=== PATIENT | female | born 1950 | race Caucasian/White ===

== ENCOUNTER 2017-05-25 11:09 | Observation (INO) | payer MEDICARE, BC, OTHER ==
[2017-05-25] MEDS ORDERED: Sodium Chloride 0.9% 5 ML Syringe FLUSH PRN (11:17)
[2017-05-25 12:26] LABS: CHLORIDE,CL 104 mmol/L (98-115); SODIUM,NA 142 mmol/L (136-145)
[2017-05-25] MEDS ORDERED: Albuterol HFA 18 Gm Inhaler INH PRN (17:29)
[2017-05-25] MEDS ORDERED: Albuterol/Ipratropium 3.0-0.5 MG/3 ML Neb Soln INH PRN (17:29)
[2017-05-25] MEDS ORDERED: metFORMIN 500 MG Tab PO SCH (18:00)
[2017-05-25] MEDS: Pantoprazole 40 MG Vial IVPUSH SCH (21:01)
[2017-05-25] MEDS: Pramipexole 0.5 MG Tab PO SCH (21:02)
[2017-05-25] MEDS: Sertraline 50 MG Tab PO SCH (21:02)
[2017-05-25] MEDS: MDI INH SCH (21:02)
[2017-05-25] MEDS: Donepezil 10 MG Tab PO SCH (21:02)
[2017-05-25] MEDS: Memantine 10 MG Tab PO SCH (21:02)
[2017-05-25] MEDS: SYMBICORT INH SCH (21:02)
[2017-05-25] MEDS: Pregabalin 100 MG Cap PO SCH (21:04)
[2017-05-25] MEDS: Pregabalin 25 MG Cap PO SCH (21:04)
[2017-05-26] MEDS ORDERED: Omeprazole 20 MG Cap.CR PO SCH (07:30)
[2017-05-26] MEDS: Pantoprazole 40 MG Vial IVPUSH SCH (08:10)
[2017-05-26] MEDS: SYMBICORT INH SCH ×2 (08:11→20:48)
[2017-05-26] MEDS: MDI INH SCH ×2 (08:11→20:48)
[2017-05-26] MEDS: Memantine 10 MG Tab PO SCH ×2 (08:13→20:49)
[2017-05-26] MEDS: Pregabalin 100 MG Cap PO SCH ×2 (08:14→20:49)
[2017-05-26] MEDS: Pregabalin 25 MG Cap PO SCH ×2 (08:14→20:49)
[2017-05-26] MEDS: atorvaSTATin 40 MG Tab PO SCH (08:14)
[2017-05-26] MEDS: Ferrous Sulfate 325 MG Tab PO SCH (08:14)
[2017-05-26] MEDS ORDERED: Aspirin 81 MG Tab.EC PO SCH (09:00)
--- NOTE | 2017-05-26 10:35 | PCM.PN ---
- General Info Date of Service: 05/26/17 Subjective Update: Patient reports she continues to be cold and tired. No change from yesterday. Functional Status: Reports: Pain Controlled, Tolerating Diet, Ambulating, Urinating - Review of Systems General: Reports: Fatigue, Other (Always cold). Denies: Fever, Chills HEENT: Denies: Headaches Pulmonary: Denies: Shortness of Breath Cardiovascular: Denies: Chest Pain, Edema Gastrointestinal: Denies: Abdominal Pain, Constipation, Diarrhea, Melena, Nausea , Vomiting Neurological: Denies: Dizziness, Headache Psychiatric: Reports: Confusion, Other (Dementia) - Patient Data Vitals - Most Recent: Last Vital Signs Temp 99.0 F 05/26/17 06:13 Pulse 61 05/26/17 06:13 Resp 18 05/26/17 06:13 BP 103/52 L 05/26/17 06:13 Pulse Ox 92 L 05/26/17 06:13 Weight - Most Recent: 140 lb 8 oz I&O - Last 24 Hours: Intake & Output 05/25/17 05/26/17 05/26/17 22:59 06:59 14:59 Intake Total 1249 50 Output Total 300 300 Balance 949 -250 Lab Results Last 24 Hours: Laboratory Results - last 24 hr 05/25/17 05/25/17 05/25/17 Range/Units 11:45 11:45 11:45 WBC 6.9 (5.0-10.0) 10^3/uL RBC 1.85 L (3.80-5.50) 10^6/uL Hgb 4.2 L* (12.0-16.0) g/dL Hct 13.8 L* (37.0-47.0) % MCV 74.3 L (82.0-92.0) fL MCH 22.9 L (27.0-31.0) pg MCHC 30.9 L (32.0-36.0) g/dL RDW 17.4 H (11.5-14.5) % RDW Coeff of Bala Plt Count 177 (150-300) 10^3/uL MPV 9.4 (7.4-10.4) fL Add Manual Diff Yes Neutrophils % (Manual) 86 H (50-70) % Band Neutrophils % 2 L (4-12) % Lymphocytes % (Manual) 7 L (20-40) % Monocytes % (Manual) 5 (2-8) % Eosinophils % (Manual) 0 L (1-3) % Basophils % (Manual) 0 (0-1) % Hypochromasia 2+ moderate Poikilocytosis 1+ slight Anisocytosis 1+ slight Microcytosis 1+ slight Schistocytes 1+ slight ESR (0-20) mm/hr Sodium 142 (136-145) mmol/L Potassium 4.1 (3.3-5.3) mmol/L Chloride 104 (98-115) mmol/L Carbon Dioxide 28.3 (21.0-32.0) mmol/L BUN 20 (6-25) mg/dL Creatinine 0.61 (0.51-1.17) mg/dL Est Cr Clr Drug Dosing TNP Estimated GFR (MDRD) > 60 mL/min Glucose 238 H (70-110) mg/dL POC Glucose (74-106) mg/dl Calcium 8.6 L (8.7-10.3) mg/dL Iron <10 L (35-145) ug/dL TIBC N/a H (261-478) ug/dL Unsaturated IBC 477 H (155-355) ug/dL Transferrin % Sat N/a H (20.0-50.0) % Ferritin (11-307) ng/mL Total Bilirubin 0.3 (0.2-1.0) mg/dL AST 23 (15-37) U/L ALT 21 (12-78) U/L Alkaline Phosphatase 109 (46-116) IU/L Creatine Kinase (26-276) U/L Total Protein 6.2 L (6.4-8.2) g/dL Albumin 3.07 (3.00-4.80) g/dL Vitamin B12 (180-914) pg/mL Folate ng/mL TSH, Ultra Sensitive (0.340-4.820) uIU/mL Blood Type Gel Antibody Screen Crossmatch 05/25/17 05/25/17 05/25/17 Range/Units 11:45 11:45 11:45 WBC (5.0-10.0) 10^3/uL RBC (3.80-5.50) 10^6/uL Hgb (12.0-16.0) g/dL Hct (37.0-47.0) % MCV (82.0-92.0) fL MCH (27.0-31.0) pg MCHC (32.0-36.0) g/dL RDW (11.5-14.5) % RDW Coeff of Bala Plt Count (150-300) 10^3/uL MPV (7.4-10.4) fL Add Manual Diff Neutrophils % (Manual) (50-70) % Band Neutrophils % (4-12) % Lymphocytes % (Manual) (20-40) % Monocytes % (Manual) (2-8) % Eosinophils % (Manual) (1-3) % Basophils % (Manual) (0-1) % Hypochromasia Poikilocytosis Anisocytosis Microcytosis Schistocytes ESR (0-20) mm/hr Sodium (136-145) mmol/L Potassium (3.3-5.3) mmol/L Chloride (98-115) mmol/L Carbon Dioxide (21.0-32.0) mmol/L BUN (6-25) mg/dL Creatinine (0.51-1.17) mg/dL Est Cr Clr Drug Dosing Estimated GFR (MDRD) mL/min Glucose (70-110) mg/dL POC Glucose (74-106) mg/dl Calcium (8.7-10.3) mg/dL Iron (35-145) ug/dL TIBC (261-478) ug/dL Unsaturated IBC (155-355) ug/dL Transferrin % Sat (20.0-50.0) % Ferritin 3 L (11-307) ng/mL Total Bilirubin (0.2-1.0) mg/dL AST (15-37) U/L ALT (12-78) U/L Alkaline Phosphatase (46-116) IU/L Creatine Kinase (26-276) U/L Total Protein (6.4-8.2) g/dL Albumin (3.00-4.80) g/dL Vitamin B12 512 (180-914) pg/mL Folate >22.0 ng/mL TSH, Ultra Sensitive (0.340-4.820) uIU/mL Blood Type Gel Antibody Screen Crossmatch 05/25/17 05/25/17 05/25/17 Range/Units 11:45 11:45 11:45 WBC (5.0-10.0) 10^3/uL RBC (3.80-5.50) 10^6/uL Hgb (12.0-16.0) g/dL Hct (37.0-47.0) % MCV (82.0-92.0) fL MCH (27.0-31.0) pg MCHC (32.0-36.0) g/dL RDW (11.5-14.5) % RDW Coeff of Bala Plt Count (150-300) 10^3/uL MPV (7.4-10.4) fL Add Manual Diff Neutrophils % (Manual) (50-70) % Band Neutrophils % (4-12) % Lymphocytes % (Manual) (20-40) % Monocytes % (Manual) (2-8) % Eosinophils % (Manual) (1-3) % Basophils % (Manual) (0-1) % Hypochromasia Poikilocytosis Anisocytosis Microcytosis Schistocytes ESR 10 (0-20) mm/hr Sodium (136-145) mmol/L Potassium (3.3-5.3) mmol/L Chloride (98-115) mmol/L Carbon Dioxide (21.0-32.0) mmol/L BUN (6-25) mg/dL Creatinine (0.51-1.17) mg/dL Est Cr Clr Drug Dosing Estimated GFR (MDRD) mL/min Glucose (70-110) mg/dL POC Glucose (74-106) mg/dl Calcium (8.7-10.3) mg/dL Iron (35-145) ug/dL TIBC (261-478) ug/dL Unsaturated IBC (155-355) ug/dL Transferrin % Sat (20.0-50.0) % Ferritin (11-307) ng/mL Total Bilirubin (0.2-1.0) mg/dL AST (15-37) U/L ALT (12-78) U/L Alkaline Phosphatase (46-116) IU/L Creatine Kinase 59 (26-276) U/L Total Protein (6.4-8.2) g/dL Albumin (3.00-4.80) g/dL Vitamin B12 (180-914) pg/mL Folate ng/mL TSH, Ultra Sensitive (0.340-4.820) uIU/mL Blood Type O POSITIVE Gel Antibody Screen Negative Crossmatch See Detail 05/25/17 05/26/17 05/26/17 Range/Units 17:45 06:12 07:20 WBC 5.3 (5.0-10.0) 10^3/uL RBC 2.59 L (3.80-5.50) 10^6/uL Hgb 6.2 L* (12.0-16.0) g/dL Hct 20.6 L (37.0-47.0) % MCV 79.8 L (82.0-92.0) fL MCH 23.9 L (27.0-31.0) pg MCHC 30.0 L (32.0-36.0) g/dL RDW 17.0 H (11.5-14.5) % RDW Coeff of Bala 16.8 Plt Count 161 (150-300) 10^3/uL MPV 9.0 (7.4-10.4) fL Add Manual Diff Neutrophils % (Manual) 63 (50-70) % Band Neutrophils % (4-12) % Lymphocytes % (Manual) 25 (20-40) % Monocytes % (Manual) 10 H (2-8) % Eosinophils % (Manual) 1 (1-3) % Basophils % (Manual) 1 (0-1) % Hypochromasia Poikilocytosis Anisocytosis Microcytosis Schistocytes ESR (0-20) mm/hr Sodium (136-145) mmol/L Potassium (3.3-5.3) mmol/L Chloride (98-115) mmol/L Carbon Dioxide (21.0-32.0) mmol/L BUN (6-25) mg/dL Creatinine (0.51-1.17) mg/dL Est Cr Clr Drug Dosing Estimated GFR (MDRD) mL/min Glucose (70-110) mg/dL POC Glucose 158 H 157 H (74-106) mg/dl Calcium (8.7-10.3) mg/dL Iron (35-145) ug/dL TIBC (261-478) ug/dL Unsaturated IBC (155-355) ug/dL Transferrin % Sat (20.0-50.0) % Ferritin (11-307) ng/mL Total Bilirubin (0.2-1.0) mg/dL AST (15-37) U/L ALT (12-78) U/L Alkaline Phosphatase (46-116) IU/L Creatine Kinase (26-276) U/L Total Protein (6.4-8.2) g/dL Albumin (3.00-4.80) g/dL Vitamin B12 (180-914) pg/mL Folate ng/mL TSH, Ultra Sensitive (0.340-4.820) uIU/mL Blood Type Gel Antibody Screen Crossmatch 05/26/17 Range/Units 07:20 WBC (5.0-10.0) 10^3/uL RBC (3.80-5.50) 10^6/uL Hgb (12.0-16.0) g/dL Hct (37.0-47.0) % MCV (82.0-92.0) fL MCH (27.0-31.0) pg MCHC (32.0-36.0) g/dL RDW (11.5-14.5) % RDW Coeff of Bala Plt Count (150-300) 10^3/uL MPV (7.4-10.4) fL Add Manual Diff Neutrophils % (Manual) (50-70) % Band Neutrophils % (4-12) % Lymphocytes % (Manual) (20-40) % Monocytes % (Manual) (2-8) % Eosinophils % (Manual) (1-3) % Basophils % (Manual) (0-1) % Hypochromasia Poikilocytosis Anisocytosis Microcytosis Schistocytes ESR (0-20) mm/hr Sodium (136-145) mmol/L Potassium (3.3-5.3) mmol/L Chloride (98-115) mmol/L Carbon Dioxide (21.0-32.0) mmol/L BUN (6-25) mg/dL Creatinine (0.51-1.17) mg/dL Est Cr Clr Drug Dosing Estimated GFR (MDRD) mL/min Glucose (70-110) mg/dL POC Glucose (74-106) mg/dl Calcium (8.7-10.3) mg/dL Iron (35-145) ug/dL TIBC (261-478) ug/dL Unsaturated IBC (155-355) ug/dL Transferrin % Sat (20.0-50.0) % Ferritin (11-307) ng/mL Total Bilirubin (0.2-1.0) mg/dL AST (15-37) U/L ALT (12-78) U/L Alkaline Phosphatase (46-116) IU/L Creatine Kinase (26-276) U/L Total Protein (6.4-8.2) g/dL Albumin (3.00-4.80) g/dL Vitamin B12 (180-914) pg/mL Folate ng/mL TSH, Ultra Sensitive 0.790 (0.340-4.820) uIU/mL Blood Type Gel Antibody Screen Crossmatch [facility] Results Last 24 Hours: Microbiology 05/26/17 09:00 Occult Blood - Final Stool / Feces - Stool, Formed Med Orders - Current: Current Medications Albuterol (Ventolin Hfa) 1 - 2 gm INH Q4H PRN PRN Reason: Dyspnea Albuterol/Ipratropium (Duoneb 3.0-0.5 Mg/3 Ml) 3 ml INH QID PRN PRN Reason: Dyspnea Atorvastatin Calcium (Lipitor) 40 mg PO DAILY [facility] Last Admin: 05/26/17 08:14 Dose: 40 mg Donepezil HCl (Aricept) 20 mg PO BEDTIME [facility] Last Admin: 05/25/17 21:02 Dose: 20 mg Ferrous Sulfate (Ferrous Sulfate) 325 mg PO DAILY [facility] Last Admin: 05/26/17 08:14 Dose: 325 mg Memantine (Namenda) 10 mg PO BID [facility] Last Admin: 05/26/17 08:13 Dose: 10 mg Pantoprazole Sodium (Protonix Iv) 40 mg IVPUSH DAILY [facility] Last Admin: 05/26/17 08:10 Dose: 40 mg PtomSymbicort (160/4.5 Mdi) 2 each INH BID [facility] Last Admin: 05/26/17 08:11 Dose: 2 each Pramipexole Dihydrochloride (Mirapex) 0.25 mg PO BEDTIME [facility] Last Admin: 05/25/17 21:02 Dose: 0.25 mg Pregabalin (Lyrica) 100 mg PO BID [facility] Last Admin: 05/26/17 08:14 Dose: 100 mg Pregabalin (Lyrica) 50 mg PO BID [facility] Last Admin: 05/26/17 08:14 Dose: 50 mg Sertraline HCl (Zoloft) 150 mg PO BEDTIME [facility] Last Admin: 05/25/17 21:02 Dose: 150 mg Sodium Chloride (Syrex Flush) 5 ml FLUSH Q8HR PRN PRN Reason: Keep Vein Open Discontinued Medications Aspirin (Halfprin) 81 mg PO DAILY [facility] Metformin HCl (Glucophage) 500 mg PO BIDMEALS [facility] Last Admin: 05/25/17 19:09 Dose: Not Given Omeprazole (Omeprazole) 20 mg PO ACBREAKFAST [place] - Exam Quality Assessment: No: Supplemental Oxygen, Urine Catheter, DVT Prophylaxis ( rule out GI bleed) General: Alert, Oriented (x3), Cooperative, No Acute Distress Lungs: Clear to Auscultation, Normal Respiratory Effort Cardiovascular: Regular Rate, Regular Rhythm GI/Abdominal Exam: Normal Bowel Sounds, Soft, Non-Tender, No Distention, No Mass Extremities: No Pedal Edema Skin: Warm, Dry, Other (pale) Neurological: Normal Speech Psy/Mental Status: Alert, Normal Affect, Normal Mood - Problem List Review Problem List Initiated/Reviewed/Updated: Yes - My Orders Last 24 Hours: My Active Orders 05/25/17 18:15 Pantoprazole [ProTONIX IV] 40 mg IVPUSH DAILY 05/26/17 07:20 FREE T4 [REF] Routine 05/26/17 09:44 Transfuse RBC [Transfuse Red Blood Cells] [COMM] Routine 05/26/17 09:57 UA W/MICROSCOPIC [URIN] Routine 05/27/17 05:11 BMP [BASIC METABOLIC PANEL,BMP] [CHEM] AM CBC WITH AUTO DIFF [HEME] AM - Assessment Assessment:: PRIMARY ASSESSMENT/PLAN: Severe iron deficiency anemia d/t GI bleed. Hgb improved to 6.2 after 2 units of PRBCs were given yesterday. MCV 79.8, Iron <10, ferritin 3, Unsaturated IBC 477. TSH 0.79, B12 512, folate >22.0. Stool for occult x 1 is positive. UA with micro pending. Will transfuse 1 units of PRBCs now, then repeat Hgb 4 hours after the tranfusion is complete. Continue oral iron and IV protonix. Continue holding aspirin. Patient will need upper endoscopy and possible colonoscopy for further evaluation. She would prefer to have this performed in [place]. Referral had been placed to hematology yesterday per PCP. SECONDARY ASSESSMENT/PLAN: Type 2 diabetes mellitus. Accuchecks BID. Glucose 157. Recent A1C 8.2. Resume metformin. Hyperlipidemia. Recent LDL 49. Continue lipitor. Asthma with COPD. Continue symbicort BID and duonebs PRN. Diabetic neuropathy. Continue lyrica. Dementia. Continue aricept and namenda. Anxiety. Continue zoloft. Depression. Continue zoloft. Restless leg syndrome. Continue mirapex. Psoriasis. DVT prophylaxis. None-GI bleed. Overall treatment plan: Patient will receive 1 unit of PRBCs today with a recheck of her hemoglobin. Goal will be to stabilize hemoglobin around 7. Will consult GI in [place] to determine when scoping should be performed.
--- NOTE | 2017-05-26 11:32 | PCM.SN ---
- Free Text/Narrative Note: Call placed to [facility] and spoke with Dr. Meneses about patient. He agrees with transfusing until achieving a hemoglobin of 7 and stabilizing there. She can stay on a baby aspirin. Check orthostatic blood pressures. She can be set up for EGD and colonoscopy within the next month in [place]. Recheck hgb 1 week after discharge.
[2017-05-26] MEDS: metFORMIN 500 MG Tab PO SCH (17:47)
[2017-05-26] MEDS: Sertraline 50 MG Tab PO SCH (20:49)
[2017-05-26] MEDS: Pramipexole 0.5 MG Tab PO SCH (20:49)
[2017-05-26] MEDS: Donepezil 10 MG Tab PO SCH (20:49)
[2017-05-27 06:23] VITALS: BP 124/54
[2017-05-27 07:55] LABS: CHLORIDE,CL 105 mmol/L (98-115); SODIUM,NA 141 mmol/L (136-145)
[2017-05-27] MEDS: Ferrous Sulfate 325 MG Tab PO SCH (08:24)
[2017-05-27] MEDS: Pantoprazole 40 MG Vial IVPUSH SCH (08:24)
[2017-05-27] MEDS: atorvaSTATin 40 MG Tab PO SCH (08:24)
[2017-05-27] MEDS: MDI INH SCH (08:25)
[2017-05-27] MEDS: SYMBICORT INH SCH (08:25)
[2017-05-27] MEDS: Memantine 10 MG Tab PO SCH (08:25)
[2017-05-27] MEDS: Pregabalin 25 MG Cap PO SCH (08:28)
[2017-05-27] MEDS: Pregabalin 100 MG Cap PO SCH (08:28)
[2017-05-27] MEDS: metFORMIN 500 MG Tab PO SCH (08:28)
--- NOTE | 2017-05-27 10:23 | PCM.DCSUM1 ---
Discharge Summary - Hospital Course Brief History: This is a 67 year old female who was admitted from the [facility] due to a hemoglobin of 4.2. Patient was asymptomatic other than fatigue and being cold. Patient has a history of iron deficiency anemia, but had stopped her iron pill a couple months ago. She had an EGD and colonoscopy performed in 2016 which were negative except a tubular adenoma had been removed. She had a recent CT of the abdomen and pelvis in November 2016 and this was negative. The patient lives at home with her . The patient has dementia and follows with neurology for this. She was admitted for blood transfusions and further workup of her severe anemia. - Discharge Data Discharge Date: 05/27/17 Discharge Disposition: Home, Self-Care 01 Condition: Good - Patient Summary/Data Complications: None Consults: Dr. Meneses, GI specialist, [facility]. Labs Pending at D/C: Urine culture Recommended Follow-up Testing/Procedures: Follow-up on urine culture to determine if treatment is warranted. Recheck hemoglobin and trend until scopes can be performed. Planned Operative Procedure(s) after DC: Patient will be set up for EGD and colonoscopy in [place] after discharge. The referral has been placed. - Patient Instructions Diet: Diabetic Diet Activity: As Tolerated Driving: Do Not Drive Showering/Bathing: May Shower Notify Provider of: Fever, Increased Pain, Nausea and/or Vomiting (dizziness, lightheadedness, shortness of breath, or chest pain) Other/Special Instructions: A referral has been made to have the colonoscopy and upper GI scope done in [place]. Their office will contact you to determine a date and time. Leila MOURA had placed a referral to hematology (blood specialist) when she saw you in the clinic, so expect a call from them as well to make an appointment. You will have your hemoglobin drawn at your appointment with Leila to ensure it is staying stable. - Discharge Plan Prescriptions/Med Rec: Ferrous Sulfate [Feosol] 325 mg PO DAILY #90 tablet Home Medications: Home Meds Donepezil [Aricept] 20 mg PO BEDTIME 10/29/15 [History] Memantine [Namenda] 10 mg PO BID 10/29/15 [History] Omeprazole 20 mg PO ACBREAKFAST 10/29/15 [History] Pramipexole [Mirapex] 0.25 mg PO BEDTIME 10/29/15 [History] metFORMIN [Glucophage] 500 mg PO BIDMEALS 10/29/15 [History] Albuterol/Ipratropium [DuoNeb 3.0-0.5 MG/3 ML] 1 ampule INH QID PRN 11/02/15 [ History] Calcium Carbonate/Vitamin D3 [Caltrate 600 Plus D3 Tablet] 1 tab PO BID [History] Pregabalin [Lyrica] 150 mg PO BID 11/02/15 [History] atorvaSTATin [Lipitor] 40 mg PO DAILY 11/02/15 [History] Albuterol [Ventolin HFA] 1 - 2 puff INH Q4H PRN 05/25/17 [History] Budesonide/Formoterol Fumarate [Symbicort 160-4.5 Mcg Inhaler] 2 puff INH BID [History] Ipratropium [place] 2 spray NASBOTH BID PRN 05/25/17 [History] Sertraline [Zoloft] 150 mg PO BEDTIME 05/25/17 [History] Ferrous Sulfate [Feosol] 325 mg PO DAILY #90 tablet 05/27/17 [Rx] Referrals: Leila Moy PA-C [Primary Care Provider] - 05/30/17 (See Leila MOURA at the [facility] on Sunday morning. You will have to call and make the appointment. ) - Discharge Summary/Plan Comment DC Time >30 min.: No Discharge Summary/Plan Comment: Date of admission: 05/25/17 Date of discharge: 05/27/17 Admitting diagnosis: Primary: Severe anemia, rule out GI bleed Secondary: Type 2 diabetes mellitus, hyperlipidemia, asthma with COPD, diabetic neuropathy, dementia, anxiety, depression, restless leg syndrome, psoriasis Final diagnosis: Primary: Severe iron deficiency anemia d/t GI bleed, Asymptomatic bacterial vaginosis, Asymptomatic bacteriuria Secondary: Type 2 diabetes mellitus, hyperlipidemia, asthma with COPD, diabetic neuropathy, dementia, anxiety, depression, restless leg syndrome, psoriasis Procedures performed: None Hospital Course: The patient's hospital course went as expected. She remained hemodynamically stable throughout her stay. She did run low grade temperatures during her blood transfusions, but not above 100.1 F. The patient received a total of 3 units of PRBCs. Her discharge hemoglobin was 7.8. She was found to have a positive stool for occult blood. Her anemia workup was as follows suggesting an iron deficiency anemia due to blood loss: MCV 74.3 (L), iron <10 (L), TIBC n/a, unsaturated IBC 477 (H), ferritin 3 (L), vitamin b12 512, folate >22.0, TSH 0.79 with free T4 0.80, ESR 10. Orthostatic blood pressures were unremarkable. The patient was started on oral iron 325 mg daily and PPI therapy. Her aspirin has been on hold. The patient had a UA performed which noted trace of blood and moderate bacteria with clue cells present. Urine culture is pending on discharge. She was not treated for either condition as she was asymptomatic. Her creatinine was 0.61 with a BUN of 12 on discharge. Consult was placed the day prior to discharge to GI in [place]. Spoke with Dr. Meneses who advised an EGD and colonoscopy within the next month. Referral placed for this as well as hematology referral by her PCP prior to admission. New medications on discharge: -Ferrous sulfate 325 mg po daily New changes to home medications on discharge: -Hold aspirin Regular home medications on discharge: -Lipitor 40 mg po daily -Mirapex 0.25 mg po at bedtime -Namenda 10 mg po BID -Calcium Carbonate/Vitamin D3 1 tablet po BID -DuoNeb 1 unit inhaled QID PRN -Lyrica 150 mg po BID -Albuterol HFA 1-2 puffs inh every 4 hours PRN -Aricept 20 mg po at HS -Omeprazole 20 mg po daily -Zoloft 150 mg po at HS -Metformin 500 mg po BID -Symbicort 160-4.5 mcg 2 puffs BID -Ipratropium [place] 2 sprays to each nostril BID PRN Condition, Treatment, and Final Disposition: The patient is in stable condition at the time of discharge. She will be discharged home today with her on oral iron with PPI therapy. She will follow-up in the [place] on 05/30/16 with Leila MOURA. She will have a hemoglobin repeated at that visit along with trending of the hemoglobins until she is able to have her scopes performed. The urine culture results will be addressed at the follow-up appointment. - General Info Date of Service: 05/27/17 Subjective Update: Patient reports she is still tired, but isn't as cold. Functional Status: Reports: Pain Controlled, Tolerating Diet, Ambulating, Urinating. Denies: New Symptoms - Review of Systems General: Reports: Weakness, Fatigue. Denies: Fever, Chills HEENT: Denies: Headaches Pulmonary: Denies: Shortness of Breath Cardiovascular: Denies: Chest Pain, Edema Gastrointestinal: Denies: Abdominal Pain, Diarrhea, Nausea, Vomiting Genitourinary: Denies: Dysuria, Other (No vaginal symptoms) Neurological: Denies: Confusion, Headache Psychiatric: Denies: Anxiety - Patient Data Vitals - Most Recent: Last Vital Signs Temp 99.5 F 05/27/17 06:22 Pulse 68 05/27/17 06:22 Resp 16 05/27/17 06:22 BP 124/54 L 05/27/17 06:22 Pulse Ox 94 L 05/27/17 06:22 Orthostatic Blood Pressure [ 117/59 Standing] Orthostatic Blood Pressure [ 107/60 Sitting] Orthostatic Blood Pressure [ 118/60 Supine] Weight - Most Recent: 140 lb 8 oz I&O - Last 24 hours: Intake & Output 05/26/17 05/27/17 05/27/17 22:59 06:59 14:59 Intake Total 780 200 Output Total 1550 700 Balance -770 -500 Lab Results - Last 24 hrs: Laboratory Results - last 24 hr 05/25/17 05/26/17 05/26/17 Range/Units 11:45 07:20 12:45 WBC (5.0-10.0) 10^3/uL RBC (3.80-5.50) 10^6/uL Hgb (12.0-16.0) g/dL Hct (37.0-47.0) % MCV (82.0-92.0) fL MCH (27.0-31.0) pg MCHC (32.0-36.0) g/dL RDW (11.5-14.5) % Plt Count (150-300) 10^3/uL MPV (7.4-10.4) fL Neut % (Auto) (50.0-70.0) % Lymph % (Auto) (20.0-40.0) % [place] % (Auto) (2.0-8.0) % Eos % (Auto) (1.0-3.0) % Baso % (Auto) (0.0-1.0) % Neut # (Auto) (2.5-7.0) 10^3/uL Lymph # (Auto) (1.0-4.0) 10^3/uL [place] # (Auto) (0.1-0.8) 10^3/uL Eos # (Auto) (0.1-0.3) 10^3/uL Baso # (Auto) (0.0-0.1) 10^3/uL Sodium (136-145) mmol/L Potassium (3.3-5.3) mmol/L Chloride (98-115) mmol/L Carbon Dioxide (21.0-32.0) mmol/L BUN (6-25) mg/dL Creatinine (0.51-1.17) mg/dL Est Cr Clr Drug Dosing mL/min Estimated GFR (MDRD) mL/min Glucose (70-110) mg/dL POC Glucose (74-106) mg/dl Calcium (8.7-10.3) mg/dL Free T4 0.80 (0.59-1.17) ng/dL Specimen Type Urinblad Urine Color Yellow (YELLOW) Urine Appearance Slightly cloudy H (CLEAR) Urine pH 7.0 (5.0-9.0) Ur Specific [place] 1.010 (1.005-1.030) Urine Protein Negative (NEGATIVE) mg/dL Urine Glucose (UA) 500 H (NEGATIVE) mg/dL Urine Ketones Negative (NEGATIVE) mg/dL Urine Occult Blood Trace-intact H (NEGATIVE) Urine Nitrite Negative (NEGATIVE) Urine Bilirubin Negative (NEGATIVE) Urine Urobilinogen 0.2 (0.2-1.0) E.U./dL Ur Leukocyte Esterase Small H (NEGATIVE) Urine RBC 0-5 /HPF Urine WBC 5-10 H /HPF Ur Epithelial Cells Few /LPF Urine Bacteria Moderate H (NONE TO FEW) /HPF Urinalysis Comment Blood Type O POSITIVE Gel Antibody Screen Negative Crossmatch See Detail 05/26/17 05/26/17 05/27/17 Range/Units 17:44 17:45 05:14 WBC (5.0-10.0) 10^3/uL RBC (3.80-5.50) 10^6/uL Hgb 8.1 L (12.0-16.0) g/dL Hct (37.0-47.0) % MCV (82.0-92.0) fL MCH (27.0-31.0) pg MCHC (32.0-36.0) g/dL RDW (11.5-14.5) % Plt Count (150-300) 10^3/uL MPV (7.4-10.4) fL Neut % (Auto) (50.0-70.0) % Lymph % (Auto) (20.0-40.0) % [place] % (Auto) (2.0-8.0) % Eos % (Auto) (1.0-3.0) % Baso % (Auto) (0.0-1.0) % Neut # (Auto) (2.5-7.0) 10^3/uL Lymph # (Auto) (1.0-4.0) 10^3/uL [place] # (Auto) (0.1-0.8) 10^3/uL Eos # (Auto) (0.1-0.3) 10^3/uL Baso # (Auto) (0.0-0.1) 10^3/uL Sodium (136-145) mmol/L Potassium (3.3-5.3) mmol/L Chloride (98-115) mmol/L Carbon Dioxide (21.0-32.0) mmol/L BUN (6-25) mg/dL Creatinine (0.51-1.17) mg/dL Est Cr Clr Drug Dosing mL/min Estimated GFR (MDRD) mL/min Glucose (70-110) mg/dL POC Glucose 151 H 173 H (74-106) mg/dl Calcium (8.7-10.3) mg/dL Free T4 (0.59-1.17) ng/dL Specimen Type Urine Color (YELLOW) Urine Appearance (CLEAR) Urine pH (5.0-9.0) Ur Specific [place] (1.005-1.030) Urine Protein (NEGATIVE) mg/dL Urine Glucose (UA) (NEGATIVE) mg/dL Urine Ketones (NEGATIVE) mg/dL Urine Occult Blood (NEGATIVE) Urine Nitrite (NEGATIVE) Urine Bilirubin (NEGATIVE) Urine Urobilinogen (0.2-1.0) E.U./dL Ur Leukocyte Esterase (NEGATIVE) Urine RBC /HPF Urine WBC /HPF Ur Epithelial Cells /LPF Urine Bacteria (NONE TO FEW) /HPF Urinalysis Comment Blood Type Gel Antibody Screen Crossmatch 05/27/17 05/27/17 Range/Units 07:15 07:15 WBC 6.3 (5.0-10.0) 10^3/uL RBC 3.12 L (3.80-5.50) 10^6/uL Hgb 7.8 L (12.0-16.0) g/dL Hct 25.8 L (37.0-47.0) % MCV 82.5 (82.0-92.0) fL MCH 24.9 L (27.0-31.0) pg MCHC 30.1 L (32.0-36.0) g/dL RDW 17.1 H (11.5-14.5) % Plt Count 168 (150-300) 10^3/uL MPV 9.3 (7.4-10.4) fL Neut % (Auto) 66.0 (50.0-70.0) % Lymph % (Auto) 22.2 (20.0-40.0) % [place] % (Auto) 9.9 H (2.0-8.0) % Eos % (Auto) 1.1 (1.0-3.0) % Baso % (Auto) 0.8 (0.0-1.0) % Neut # (Auto) 4.1 (2.5-7.0) 10^3/uL Lymph # (Auto) 1.4 (1.0-4.0) 10^3/uL [place] # (Auto) 0.6 (0.1-0.8) 10^3/uL Eos # (Auto) 0.1 (0.1-0.3) 10^3/uL Baso # (Auto) 0.1 (0.0-0.1) 10^3/uL Sodium 141 (136-145) mmol/L Potassium 4.3 (3.3-5.3) mmol/L Chloride 105 (98-115) mmol/L Carbon Dioxide 28.1 (21.0-32.0) mmol/L BUN 12 (6-25) mg/dL Creatinine 0.61 (0.51-1.17) mg/dL Est Cr Clr Drug Dosing 87.57 mL/min Estimated GFR (MDRD) > 60 mL/min Glucose 234 H (70-110) mg/dL POC Glucose (74-106) mg/dl Calcium 8.5 L (8.7-10.3) mg/dL Free T4 (0.59-1.17) ng/dL Specimen Type Urine Color (YELLOW) Urine Appearance (CLEAR) Urine pH (5.0-9.0) Ur Specific [place] (1.005-1.030) Urine Protein (NEGATIVE) mg/dL Urine Glucose (UA) (NEGATIVE) mg/dL Urine Ketones (NEGATIVE) mg/dL Urine Occult Blood (NEGATIVE) Urine Nitrite (NEGATIVE) Urine Bilirubin (NEGATIVE) Urine Urobilinogen (0.2-1.0) E.U./dL Ur Leukocyte Esterase (NEGATIVE) Urine RBC /HPF Urine WBC /HPF Ur Epithelial Cells /LPF Urine Bacteria (NONE TO FEW) /HPF Urinalysis Comment Blood Type Gel Antibody Screen Crossmatch STEPHANIE Results - Last 24 hrs: Microbiology 05/26/17 09:00 Occult Blood - Final Stool / Feces - Stool, Formed Med Orders - Current: Current Medications Albuterol (Ventolin Hfa) 1 - 2 gm INH Q4H PRN PRN Reason: Dyspnea Albuterol/Ipratropium (Duoneb 3.0-0.5 Mg/3 Ml) 3 ml INH QID PRN PRN Reason: Dyspnea Atorvastatin Calcium (Lipitor) 40 mg PO DAILY [facility] Last Admin: 05/27/17 08:24 Dose: 40 mg Donepezil HCl (Aricept) 20 mg PO BEDTIME [facility] Last Admin: 05/26/17 20:49 Dose: 20 mg Ferrous Sulfate (Ferrous Sulfate) 325 mg PO DAILY [facility] Last Admin: 05/27/17 08:24 Dose: 325 mg Memantine (Namenda) 10 mg PO BID [facility] Last Admin: 05/27/17 08:25 Dose: 10 mg Metformin HCl (Glucophage) 500 mg PO BIDMEALS [facility] Last Admin: 05/27/17 08:28 Dose: 500 mg Pantoprazole Sodium (Protonix Iv) 40 mg IVPUSH DAILY [facility] Last Admin: 05/27/17 08:24 Dose: 40 mg PtomSymbicort (160/4.5 Mdi) 2 each INH BID [facility] Last Admin: 05/27/17 08:25 Dose: 2 each Pramipexole Dihydrochloride (Mirapex) 0.25 mg PO BEDTIME [facility] Last Admin: 05/26/17 20:49 Dose: 0.25 mg Pregabalin (Lyrica) 100 mg PO BID [facility] Last Admin: 05/27/17 08:28 Dose: 100 mg Pregabalin (Lyrica) 50 mg PO BID [facility] Last Admin: 05/27/17 08:28 Dose: 50 mg Sertraline HCl (Zoloft) 150 mg PO BEDTIME [facility] Last Admin: 05/26/17 20:49 Dose: 150 mg Sodium Chloride (Syrex Flush) 5 ml FLUSH Q8HR PRN PRN Reason: Keep Vein Open Last Admin: 05/27/17 08:30 Dose: 5 ml Discontinued Medications Aspirin (Halfprin) 81 mg PO DAILY [facility] Metformin HCl (Glucophage) 500 mg PO BIDMEALS [facility] Last Admin: 05/25/17 19:09 Dose: Not Given Omeprazole (Omeprazole) 20 mg PO ACBREAKFAST [facility] - Exam Quality Assessment: Denies: Supplemental Oxygen, Urine Catheter, DVT Prophylaxis General: Reports: Alert, Oriented (x3), Cooperative, No Acute Distress Lungs: Reports: Clear to Auscultation, Normal Respiratory Effort Cardiovascular: Reports: Regular Rate, Regular Rhythm, No Murmurs GI/Abdominal Exam: Normal Bowel Sounds, Soft, Non-Tender, No Distention, No Mass Extremities: No Pedal Edema Skin: Reports: Warm, Dry, Other (Pale) Neurological: Reports: Normal Speech Psy/Mental Status: Reports: Alert, Normal Affect, Normal Mood *Q Meaningful Use (DIS) - VTE *Q VTE Criteria *Q: - Stroke *Q Stroke Criteria *Q: - AMI *Q AMI Criteria *Q:
== END 2017-05-27 11:30 | disposition home or self-care (01) ==
LOC: KA.MS 11:29
PROVIDERS: ADMIT Physician Assistant Medical; ATTEND Nurse Practitioner Family
DX: D50.0 Iron deficiency anemia secondary to blood loss (chronic) (principal); E78.5 Hyperlipidemia, unspecified; J44.9 Chronic obstructive pulmonary disease, unspecified; E11.40 Type 2 diabetes mellitus with diabetic neuropathy, unspecified; F41.9 Anxiety disorder, unspecified; F32.9 Major depressive disorder, single episode, unspecified; G25.81 Restless legs syndrome; L40.9 Psoriasis, unspecified; N76.0 Acute vaginitis; R82.71 Bacteriuria; G30.0 Alzheimer's disease with early onset; F02.80 Dementia in other diseases classified elsewhere, unspecified severity, without behavioral disturbance, psychotic disturbance, mood disturbance, and anxiety; F17.210 Nicotine dependence, cigarettes, uncomplicated; Z86.010 Personal history of colon polyps; Z79.899 Other long term (current) drug therapy; Z79.84 Long term (current) use of oral hypoglycemic drugs; Z88.0 Allergy status to penicillin; Z90.49 Acquired absence of other specified parts of digestive tract
CPT/HCPCS: 36415; 36430; 80048; 80053; 81001; 82270; 82550; 82607; 82728; 82746; 82962; 83540; 83550; 84439; 84443; 85018; 85025; 85651; 86850; 86900; 86901; 86920; 86922; 87086; A9270; C9113; P9016; 96374; 96376; G0378; G0379

== ENCOUNTER 2020-10-11 17:04 | Observation (INO) | payer MEDICARE, BC, OTHER ==
[2020-10-11] MEDS ORDERED: Sodium Chloride 0.9% 1,000 ML IV SCH ×3 (17:30→20:01)
[2020-10-11] MEDS ORDERED: Sodium Chloride 0.9% 500 ML IV SCH (18:30)
[2020-10-11] MEDS ORDERED: Albuterol 0.083% 2.5 MG/3 ML Neb Soln INH PRN (19:58)
[2020-10-11] MEDS: Megestrol 40 MG Tab PO SCH (20:31)
[2020-10-11] MEDS ORDERED: Pramipexole 0.125 MG Tab PO SCH (21:00)
[2020-10-12] MEDS ORDERED: Sodium Chloride 0.9% 1,000 ML IV SCH ×2 (00:29→02:01)
[2020-10-12 06:18] VITALS: BP 126/67; PULSE 79
[2020-10-12] MEDS ORDERED: Omeprazole 20 MG Cap.CR PO SCH (07:30)
[2020-10-12] MEDS: Megestrol 40 MG Tab PO SCH (08:04)
[2020-10-12 11:22] LABS: ANION GAP 13.6 mmol/L (5-15); CHLORIDE,CL 105 mmol/L (98-107); SODIUM,NA 141 mmol/L (136-145)
--- NOTE | 2020-10-12 11:40 | PCM.DCSUM1 ---
Discharge Summary - Hospital Course Free Text/Narrative:: Date of admission: 10/11/20 Date of discharge: 10/12/20 Admission diagnoses: # Dehydration # Hypotension Discharge diagnoses: # Emphysema # Asthma # Hyperlipidemia # Diabetes Mellitus, Type II # Diabetic neuropathy # Status post CVA - left temporal parietal ischemic stroke (01/28/2020) # Alzheimer's type dementia - early onset without behavioral disturbance # Physical frailty # Protein malnutrition # Functional decline, recent # Restless legs syndrome # Anxiety # Depression # Psoriasis # Obstructive sleep apnea # Iron deficiency anemia # Melena Hospital course: HPI: Patient was seen in clinic on 10/11/20 for complaints of significant weakness and poor oral intake. Patient has experienced significant recent decline per her . Patient's stated he planned to have patient admitted for [facility] in [place], [place]. BP 94/52 in clinic, HR 120, T 96.9, RR 20, 96% on room air. Patient ill appearing and dehydrated. Due to concern for dehydration given vitals in clinic, patient was directly admitted to [facility] on observation status for IV fluid hydration. WBC 8.2, Hgb 9 .7 (stable), Plt 472. Na 138, K 4.3, BUN 14, Creatinine 0.83, GFR 72. 5: Upon admission yesterday, patient was given an initial IV fluid bolus and then had fluids at 200ml/hr which were subsequently decreased further to 25ml/hr last night upon normalization of blood pressure and heart rate. Patient pulled out her IV last night and this was not replaced due to likely discharge to SNF today. Patient's present at bedside today and states he has witnessed significant recent decline in his since she started only taking minimal amounts of food and had been refusing to take her medications which he attempted to crush for her. Patient alert only to self. POLST forms updated reflecting DNR/DNI status per , Balbir. Vitals stable. Hgb decreased to 7.4 today, likely dilutional given IV hydration for dehydration. Hospice referral to be made at [facility]. Discharge and follow-up recommendations: - Discharge to SNF - [facility] in [place], [place] - New medications at discharge: Continue home medications - Follow-up on next senior care rounds with Karen Chakraborty PA-C on 10/15/20 - Discharge Data Discharge Date: 10/12/20 Discharge Disposition: DC/Tfer to SNF 03 Condition: Fair - Referral to Home Health Primary Care Physician: Yordy Gonzalez NP - Patient Summary/Data Consults: Consultations 10/11/20 17:46 Consult to Case Management/Validation Manager [CONS] Routine Consult to Pickle Processor [CONS] Routine - Discharge Plan *PRESCRIPTION DRUG MONITORING PROGRAM REVIEWED*: Not Applicable *COPY OF PRESCRIPTION DRUG MONITORING REPORT IN PATIENT NIKKO: Not Applicable Home Medications: Home Meds Donepezil [Aricept] 20 mg PO BEDTIME 10/29/15 [History] Memantine [Namenda] 10 mg PO BID 10/29/15 [History] Omeprazole 20 mg PO ACBREAKFAST 10/29/15 [History] Pramipexole [Mirapex] 0.25 mg PO BEDTIME 10/29/15 [History] metFORMIN [Glucophage] 500 mg PO BIDMEALS 10/29/15 [History] Sertraline [Zoloft] 150 mg PO BEDTIME 05/25/17 [History] Ferrous Sulfate [Feosol] 325 mg PO DAILY #90 tablet 05/27/17 [Rx] Albuterol [Proventil Neb Soln] 1 ampule INH QID PRN 10/11/20 [History] Ascorbic Acid [Vitamin C] 250 mg PO TID 10/11/20 [History] Aspirin [Aspirin EC] 81 mg PO DAILY 10/11/20 [History] Betamethasone Dipropionate [Diprolene AF 0.05% Crm] 1 applic TOP DAILY 10/11/20 [History] Gabapentin [Neurontin] 300 mg PO BEDTIME 10/11/20 [History] Glimepiride 1 mg PO QAM 10/11/20 [History] Megestrol [Megace] 40 mg PO QID 10/11/20 [History] Rosuvastatin Calcium 20 mg PO DAILY 10/11/20 [History] Zaleplon [Sonata] 5 mg PO BEDTIME 10/11/20 [History] estradioL [Estradiol] 1 applic VG ASDIRECTED 10/11/20 [History] lisinopriL [Zestril] 2.5 mg PO DAILY 10/11/20 [History] Oxygen Therapy Mode: Room Air Referrals: [facility] [Outside] (Follow up on next rounds with Ayesha Chakraborty PA-C on 10/15/20 for senior care admission documentation) - Discharge Summary/Plan Comment DC Time >30 min.: Yes - General Info Date of Service: 10/12/20 Functional Status: Reports: Pain Controlled, Tolerating Diet (minimal oral intake ), Urinating (incontinent). Denies: Ambulating, New Symptoms - Review of Systems General: Reports: Weakness HEENT: Reports: No Symptoms Pulmonary: Reports: No Symptoms Cardiovascular: Reports: No Symptoms Gastrointestinal: Reports: Decreased Appetite, Other (incontinent of bowel) Genitourinary: Reports: Incontinence Musculoskeletal: Reports: No Symptoms Skin: Reports: Dryness Neurological: Reports: Pre-Existing Deficit (hx of CVA), Difficulty Walking Psychiatric: Reports: Confusion (Alzheimer's type dementia) - Patient Data Vitals - Most Recent: Last Vital Signs Temp 98.0 F 10/12/20 06:17 Pulse 79 10/12/20 06:17 Resp 20 10/12/20 06:17 BP 126/67 10/12/20 06:17 Pulse Ox 95 10/12/20 06:17 Weight - Most Recent: 115 lb 7 oz I&O - Last 24 hours: Intake & Output 10/11/20 10/12/20 10/12/20 22:59 06:59 14:59 Intake Total 150 1355 Balance 150 1355 Lab Results - Last 24 hrs: Laboratory Results - last 24 hr 10/11/20 10/12/20 10/12/20 Range/Units 17:05 10:40 10:40 WBC 6.74 (5.00-10.00) 10^3/uL RBC 3.07 L (3.80-5.50) 10^6/uL Hgb 7.4 L (12.0-16.0) g/dL Hct 25.8 L (37.0-47.0) % MCV 84.0 (82.0-92.0) fL MCH 24.1 L (27.0-31.0) pg MCHC 28.7 L (32.0-36.0) g/dL RDW 14.8 H (11.5-14.5) % Plt Count 318 (150-400) 10^3/uL MPV 9.2 (7.4-10.4) fL Immature Gran % (Auto) 0.4 (0.0-5.0) % Neut % (Auto) 72.2 H (50.0-70.0) % Lymph % (Auto) 20.2 (20.0-40.0) % [place] % (Auto) 5.9 (2.0-8.0) % Eos % (Auto) 0.9 L (1.0-3.0) % Baso % (Auto) 0.4 (0.0-1.0) % Neut # (Auto) 4.86 (2.50-7.00) 10^3/uL Lymph # (Auto) 1.36 (1.00-4.00) 10^3/uL [place] # (Auto) 0.40 (0.10-0.80) 10^3/uL Eos # (Auto) 0.06 L (0.10-0.30) 10^3/uL Baso # (Auto) 0.03 (0.00-0.10) 10^3/uL Immature Gran # (Auto) 0.03 (0.00-0.50) 10^3/uL Sodium 141 (136-145) mmol/L Potassium 3.7 (3.5-5.1) mmol/L Chloride 105 (98-107) mmol/L Carbon Dioxide 26.1 (21.0-32.0) mmol/L Anion Gap 13.6 (5-15) mmol/L BUN 12 (7-18) mg/dL Creatinine 0.68 (0.51-1.17) mg/dL Est Cr Clr Drug Dosing 61.82 mL/min Estimated GFR (MDRD) > 60 mL/min Glucose 199 H (70-140) mg/dL Calcium 8.6 L (8.7-10.3) mg/dL Phosphorus 4.0 (2.6-4.7) mg/dL Magnesium 1.5 L (1.8-2.4) mg/dL SARS CoV-2 RNA Rapid DARYN Negative (NEGATIVE) Med Orders - Current: Current Medications Albuterol (Albuterol 0.083% 2.5 Mg/3 Ml Neb Soln) 2.5 mg INH QID PRN PRN Reason: Wheezing Sodium Chloride (Normal Saline) 1,000 mls @ 25 mls/hr IV ASDIRECTED [facility] Last Admin: 10/12/20 00:36 Dose: 25 mls/hr Documented by: Megestrol Acetate (Megestrol 40 Mg Tab) 40 mg PO QID ON LICENSE OF [facility] Last Admin: 10/12/20 08:04 Dose: 40 mg Documented by: Omeprazole (Omeprazole 20 Mg Cap.Cr) 20 mg PO ACBREAKFAST ON LICENSE OF [facility] Last Admin: 10/12/20 08:04 Dose: 20 mg Documented by: Pramipexole Dihydrochloride (Pramipexole 0.125 Mg Tab) 0.25 mg PO BEDTIME ON LICENSE OF [facility] Last Admin: 10/11/20 20:32 Dose: 0.25 mg Documented by: Discontinued Medications Sodium Chloride (Normal Saline) 1,000 mls @ 999 mls/hr IV ASDIRECTED ON LICENSE OF [facility] Stop: 10/11/20 17:31 Last Infusion: 10/11/20 18:42 Dose: 200 mls/hr Documented by: Sodium Chloride (Normal Saline) 500 mls @ 999 mls/hr IV ASDIRECTED ON LICENSE OF [facility] Stop: 10/11/20 19:01 Sodium Chloride (Normal Saline) 1,000 mls @ 500 mls/hr IV ASDIRECTED ON LICENSE OF [facility] Stop: 10/11/20 20:00 Sodium Chloride (Normal Saline) 1,000 mls @ 200 mls/hr IV ASDIRECTED ON LICENSE OF [facility] Stop: 10/12/20 02:00 Last Admin: 10/11/20 19:26 Dose: 200 mls/hr Documented by: Sodium Chloride (Normal Saline) 1,000 mls @ 25 mls/hr IV ASDIRECTED [facility] - Exam Quality Assessment: Denies: Supplemental Oxygen, DVT Prophylaxis General: Reports: Alert, Cooperative, Other (poor historian, history of alzheimer's type dementia). Denies: Oriented (oriented to self only) HEENT: Reports: Pupils Equal, Pupils Reactive, Mucous Membr. Moist/[place] Neck: Reports: Supple Lungs: Reports: Clear to Auscultation, Normal Respiratory Effort, Decreased Breath Sounds Cardiovascular: Reports: Regular Rate, Regular Rhythm, No Murmurs GI/Abdominal Exam: Normal Bowel Sounds, Soft, Non-Tender, No Distention (Female) Exam: Deferred Rectal (Female) Exam: Deferred Back Exam: Reports: Normal Inspection Extremities: Normal Inspection, Non-Tender, No Pedal Edema, Normal Capillary Refill, Other (weakness) Skin: Reports: Warm, Dry, Intact Neurological: Reports: No New Focal Deficit. Denies: Normal Gait Psy/Mental Status: Reports: Depressed
== END 2020-10-12 13:50 ==
LOC: KA.MS 17:04
PROVIDERS: ADMIT Nurse Practitioner Family; ATTEND Nurse Practitioner Family
DX: E86.0 Dehydration (principal); I95.9 Hypotension, unspecified; R53.1 Weakness; J43.9 Emphysema, unspecified; E78.5 Hyperlipidemia, unspecified; E11.40 Type 2 diabetes mellitus with diabetic neuropathy, unspecified; G30.0 Alzheimer's disease with early onset; F02.80 Dementia in other diseases classified elsewhere, unspecified severity, without behavioral disturbance, psychotic disturbance, mood disturbance, and anxiety; G25.81 Restless legs syndrome; F41.9 Anxiety disorder, unspecified; F32.9 Major depressive disorder, single episode, unspecified; G47.33 Obstructive sleep apnea (adult) (pediatric); D50.9 Iron deficiency anemia, unspecified; L40.9 Psoriasis, unspecified; D50.0 Iron deficiency anemia secondary to blood loss (chronic); K21.9 Gastro-esophageal reflux disease without esophagitis; R32 Unspecified urinary incontinence; E46 Unspecified protein-calorie malnutrition; Z68.1 Body mass index [BMI] 19.9 or less, adult; Z20.822 Contact with and (suspected) exposure to COVID-19; Z88.0 Allergy status to penicillin; Z79.82 Long term (current) use of aspirin; Z79.84 Long term (current) use of oral hypoglycemic drugs; Z79.899 Other long term (current) drug therapy; Z87.891 Personal history of nicotine dependence; Z87.19 Personal history of other diseases of the digestive system; Z86.73 Personal history of transient ischemic attack (TIA), and cerebral infarction without residual deficits
CPT/HCPCS: 36415; 80048; 83735; 84100; 85025; 96360; 96361; A9270-GY; G0378; J7030; U0002